=== PATIENT | female | born 2000 | race Caucasian/White ===

== ENCOUNTER 2021-03-16 19:13 | Emergency (ER) | payer OTHER ==
[~2021-03-16] VITALS: Ht 180.3 cm; Wt 59.0 kg
[2021-03-16 19:28] VITALS: BP 125/78
--- NOTE | 2021-03-16 19:28 | NUR ---
PT OFFLOADED TO LOBBY. FAMILY WITH PT IN LOBBY.
--- NOTE | 2021-03-16 21:11 | NUR ---
PATIENT LEFT WITHOUT BEING SEEN BY DR. SNEED. NO FURTHER CARE PROVIDED FOR PATIENT.
--- NOTE | 2021-03-16 21:11 | NUR ---
PT LEFT LOBBY AT 2110 PER ALANNAH
== END 2021-03-16 21:10 | disposition left against medical advice (07) ==
LOC: MED 19:13
DX: F41.9 Anxiety disorder, unspecified (principal); Z53.21 Procedure and treatment not carried out due to patient leaving prior to being seen by health care provider